=== PATIENT | female | born 1955 | race Caucasian/White ===

== ENCOUNTER → 2016-09-21 | Outpatient (CLI) | payer OTHER ==
[~2016-09-21] MED LIST: TESTOSTERONE
== END | disposition home or self-care (01) ==
LOC: CFH 13:46
PROVIDERS: ATTEND Internal Medicine Cardiovascular Disease
DX: I08.3 Combined rheumatic disorders of mitral, aortic and tricuspid valves (principal); I37.1 Nonrheumatic pulmonary valve insufficiency; I45.10 Unspecified right bundle-branch block
CPT/HCPCS: 93306